=== PATIENT | female | born 1945 | race Caucasian/White ===

== ENCOUNTER → 2018-10-25 | Outpatient (CLI) | payer OTHER ==
[~2018-10-25] VITALS: Ht 157.5 cm; Wt 63.5 kg
[~2018-10-25] MED LIST: ANORO ELLIPTA1 EACH INH; ASPIRIN325 PO; BEVESPI AEROS10.7 GM INH; CELEXA20 MG PO; CRESTOR40 MG PO; DEPAKOTE 250MG250 M1 PO; FISH OIL 1,001000 M2 PO; IMDUR 60 MG TAB60 M1 PO; LEVEMIR SUBQ; LISINOPRIL20 MG PO; METFORMIN HCL500 MG PO; NABUMETONE 750750 M1 PO; PROTONIX40 M1 PO; SPIRIVA INH; SYNTHROID88 MCG PO; TOPROL XL100 MG PO
--- NOTE | ~2018-10-25 | EKG ---
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1945 Requested By: Nicola Bergeron Order Number: [id number] MD: Darshan Zarco Measurements Intervals [place] Rate: 51 P: 50 AK: 178 QRS: 99 QRSD: 105 T: 119 QT: 445 QTc: 410 Interpretive Statements Sinus rhythm Right axis deviation Abnormal T, consider ischemia, lateral leads No previous ECG available for comparison Electronically Signed On 10-25-2018 14:44:19 [employer] by Darshan Zarco [email or web address] <ELECTRONICALLY SIGNED> By: Darshan Zarco MD, [facility] 10/25/18 1444 [id number] [id number] Darshan Zarco MD, FACC /EPI
[2018-10-25 09:24] VITALS: BP 179/90
[2018-10-25 09:44] LABS: HEMATOCRIT 44.5 % (37.0-47.0); HEMOGLOBIN 15.3 gm/dL (12.0-15.0); MCH 29.9 pg (26.0-34.0); MCHC 34.3 g/dL (28.0-37.0); MCV 87.1 fL (80.0-100.0); RBC 5.11 mil/uL (4.20-5.00); RDW 13.3 % (10.5-14.5); WBC 9.5 thou/uL (4.0-11.0)
[2018-10-25 09:53] LABS: CALCIUM 9.3 mg/dL (8.5-10.1); CREATININE 0.8 mg/dL (0.6-1.0); POTASSIUM 4.3 mmol/L (3.5-5.1)
== END | disposition home or self-care (01) ==
LOC: CATH 08:54
PROVIDERS: Internal Medicine
DX: I25.10 Atherosclerotic heart disease of native coronary artery without angina pectoris (principal); I10 Essential (primary) hypertension; E11.9 Type 2 diabetes mellitus without complications; J44.9 Chronic obstructive pulmonary disease, unspecified; I73.9 Peripheral vascular disease, unspecified; E78.5 Hyperlipidemia, unspecified; K21.9 Gastro-esophageal reflux disease without esophagitis; F17.210 Nicotine dependence, cigarettes, uncomplicated; Z90.710 Acquired absence of both cervix and uterus; Z86.73 Personal history of transient ischemic attack (TIA), and cerebral infarction without residual deficits; Z79.4 Long term (current) use of insulin; Z82.49 Family history of ischemic heart disease and other diseases of the circulatory system; Z98.890 Other specified postprocedural states; Z79.899 Other long term (current) drug therapy; Z88.0 Allergy status to penicillin

== ENCOUNTER 2018-10-26 15:06 | Emergency (ER) | payer OTHER ==
[~2018-10-26] VITALS: Ht 157.5 cm; Wt 64.9 kg
--- NOTE | ~2018-10-26 | EKG ---
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[place] : 1945 Requested By: Michael Diallo Order Number: [id number] MD: Darshan Zarco Measurements Intervals [place] Rate: 56 P: 57 [place]: 181 QRS: 90 QRSD: 104 T: 109 QT: 437 QTc: 422 Interpretive Statements Sinus rhythm Nonspecific intraventricular conduction delay Abnormal T, consider ischemia, lateral leads Compared to ECG 10/25/2018 09:41:02 No significant changes Electronically Signed On 10-26-2018 16:49:02 [employer]CHITECT by Darshan Zarco [email or web address] <ELECTRONICALLY SIGNED> By: Darshan Zarco MD, [facility] 10/26/18 1649 1507 1507 Darshan Zarco MD, FACC /EPI
[~2018-10-26 15:06] MED LIST changes: -CRESTOR40 MG PO; -LISINOPRIL20 MG PO
[2018-10-26] MEDS ORDERED: CRESTOR40 MG PO (15:39)
[2018-10-26] MEDS ORDERED: LISINOPRIL20 MG PO (15:39)
[2018-10-26] MEDS ORDERED: BEVESPI AEROS10.7 GM INH (15:40)
[2018-10-26 15:44] LABS: ANION GAP 8 mmol/L (7-16); BUN 13 mg/dL (7-18); CHLORIDE 103 mmol/L (98-107); CO2 28 mmol/L (21-32); GLUCOSE 237 mg/dL (74-106); POTASSIUM 4.4 mmol/L (3.5-5.1); SODIUM 139 mmol/L (136-145)
[2018-10-26 15:48] LABS: TROPONIN-I <0.06 ng/mL (<0.06)
[2018-10-26 16:52] LABS: URINE BILIRUBIN NEGATIVE (Negative); URINE BLOOD NEGATIVE (Negative); URINE CLARITY CLEAR; URINE COLOR YELLOW; URINE GLUCOSE-RANDOM* NEGATIVE (Negative); URINE KETONES TRACE (Negative); URINE LEUKOCYTES-REFLEX NEGATIVE (Negative); URINE NITRITE-REFLEX NEGATIVE (Negative); URINE PROTEIN (DIPSTICK) 2+ (Negative); URINE SPECIFIC GRAVITY 1.025 (1.005-1.035); URINE UROBILINOGEN 0.2 E.U./dl (0.2-1.0)
[2018-10-26 17:14] LABS: BACTERIA-REFLEX None Seen /HPF (None Seen); CRYSTALS None Seen /LPF (None Seen); SQUAMOUS 4-10 Moderate /LPF (0-3); URINE RBC 0-2 Rare /HPF (0-2); URINE WBC-REFLEX 6-15 Few /HPF (0-5)
[2018-10-26 17:15] LABS: FINE GRANULAR CASTS 0-3 Few /LPF (None Seen); HYALINE CASTS 4-10 Moderate /LPF (None Seen)
[2018-10-26 17:47] VITALS: BP 142/48
== END 2018-10-26 17:48 | disposition home or self-care (01) ==
LOC: ER 15:06
PROVIDERS: Emergency Medicine
DX: R42 Dizziness and giddiness (principal); R06.02 Shortness of breath; I25.10 Atherosclerotic heart disease of native coronary artery without angina pectoris; I10 Essential (primary) hypertension; E78.5 Hyperlipidemia, unspecified; Z86.73 Personal history of transient ischemic attack (TIA), and cerebral infarction without residual deficits; Z88.0 Allergy status to penicillin; Z90.710 Acquired absence of both cervix and uterus; Z90.89 Acquired absence of other organs; Z95.5 Presence of coronary angioplasty implant and graft

== ENCOUNTER → 2019-12-13 | Outpatient (CLI) | payer OTHER ==
[~2019-12-13] MED LIST changes: +CRESTOR40 MG PO; +LISINOPRIL20 MG PO
== END | disposition home or self-care (01) ==
LOC: SJCVCIMAG 08:43
DX: I65.23 Occlusion and stenosis of bilateral carotid arteries (principal); I25.10 Atherosclerotic heart disease of native coronary artery without angina pectoris; M79.604 Pain in right leg; I73.9 Peripheral vascular disease, unspecified; I10 Essential (primary) hypertension; E78.00 Pure hypercholesterolemia, unspecified; E11.9 Type 2 diabetes mellitus without complications; Z72.0 Tobacco use; Z90.710 Acquired absence of both cervix and uterus; Z90.09 Acquired absence of other part of head and neck; Z82.49 Family history of ischemic heart disease and other diseases of the circulatory system; Z79.4 Long term (current) use of insulin; Z79.899 Other long term (current) drug therapy

== ENCOUNTER → 2021-04-14 | Outpatient (CLI) | payer OTHER | LOC: SJCVCIMAG 07:45 | PROVIDERS: ATTEND Internal Medicine | DX: I65.23 Occlusion and stenosis of bilateral carotid arteries (principal); I73.9 Peripheral vascular disease, unspecified; I25.89 Other forms of chronic ischemic heart disease; I77.9 Disorder of arteries and arterioles, unspecified; I25.10 Atherosclerotic heart disease of native coronary artery without angina pectoris; E78.00 Pure hypercholesterolemia, unspecified; I10 Essential (primary) hypertension; M79.604 Pain in right leg; M79.605 Pain in left leg; E11.9 Type 2 diabetes mellitus without complications; F17.210 Nicotine dependence, cigarettes, uncomplicated; Z95.820 Peripheral vascular angioplasty status with implants and grafts; Z90.710 Acquired absence of both cervix and uterus; Z88.0 Allergy status to penicillin; Z79.4 Long term (current) use of insulin; Z79.899 Other long term (current) drug therapy; Z86.73 Personal history of transient ischemic attack (TIA), and cerebral infarction without residual deficits; Z82.49 Family history of ischemic heart disease and other diseases of the circulatory system ==